=== PATIENT | female | born 1985 | race Caucasian/White ===

== ENCOUNTER 2017-08-09 15:05 | Emergency (ER) | payer MEDICAID, SELFPAY ==
[2017-08-09 15:06] VITALS: BP 112/82; PULSE 90; RESP 86; TEMP 37; O2SAT 100; BMI 21.1
--- NOTE | 2017-08-09 15:33 | ED.RN ---
Pt has refused lab work, iv and iv toradol. Dr. Queen aware.
--- NOTE | 2017-08-09 15:38 | ED.RN ---
Pt has also refused transvaginal US. Only wants PO pain med, like Dr. Jones gave me last time.:
[2017-08-09 15:39] VITALS: PULSE 83; RESP 16
--- NOTE | 2017-08-09 15:46 | ED.VISSUMM ---
- ER Visit Summary Date of Service: 08/09/17 Chief Complaint: Pelvic pain History of Present Illness: The patient is a 32 F who presents with pelvic pain. She has had chronic pelvic pain for 3 years. She complains of severe pelvic pain with her menstrual periods. She complains of 5 days of pelvic cramping. She denies fevers or vomiting. She does report nausea. She denies dysuria frequency urgency or hematuria. She actually has an appointment with AIRWAY CONTROLLER in 4 days. She states she just could not take it anymore so presented here. Physical Examination: Afebrile vitals are unremarkable Moist mucous membranes Heart regular rate and rhythm Lungs are clear Abdomen soft nontender nondistended Alert Resting comfortably in no distress Test Results: Refused Emergency Department Course and Treatment: Given that the patient was complaining of severe pain. I did order laboratory studies and a pelvic ultrasound. The patient refused any diagnostic testing IV or IV medications. She states that last time she was here she was just given a prescription for Percocet and that is all she wanted was a prescription for pain medication. I discussed risks and benefits and that I could not rule out serious pathology without diagnostic testing including serious process such as ovarian torsion. The patient vocalized understanding. She signed out AGAINST MEDICAL ADVICE. She was given prescriptions for Dolobid and Zofran and advised to keep her scheduled follow-up with AIRWAY CONTROLLER. Treatment Plan: [] Disposition: Discharged AGAINST MEDICAL ADVICE Impression: Pelvic pain This note was generated with [employer] dictation software. It may contain incorrect words, spelling, and punctuation that were not noted in review of the chart prior to signing ED Disposition - Plan for ED Patient: Chief Complaint: Vag Bleeding Referrals: Jada Lilly MD [Primary Care Provider] -
--- NOTE | 2017-08-09 15:49 | ED.DCSUM_ITS ---
- ER Visit Summary Date of Service: 08/09/17 Chief Complaint: Pelvic pain History of Present Illness: The patient is a 32 F who presents with pelvic pain. She has had chronic pelvic pain for 3 years. She complains of severe pelvic pain with her menstrual periods. She complains of 5 days of pelvic cramping. She denies fevers or vomiting. She does report nausea. She denies dysuria frequency urgency or hematuria. She actually has an appointment with OB /INSTRUMENT MECHANICS SUPERVISOR in 4 days. She states she just could not take it anymore so presented here. Physical Examination: Afebrile vitals are unremarkable Moist mucous membranes Heart regular rate and rhythm Lungs are clear Abdomen soft nontender nondistended Alert Resting comfortably in no distress Test Results: Refused Emergency Department Course and Treatment: Given that the patient was complaining of severe pain. I did order laboratory studies and a pelvic ultrasound. The patient refused any diagnostic testing IV or IV medications. She states that last time she was here she was just given a prescription for Percocet and that is all she wanted was a prescription for pain medication. I discussed risks and benefits and that I could not rule out serious pathology without diagnostic testing including serious process such as ovarian torsion. The patient vocalized understanding. She signed out AGAINST MEDICAL ADVICE. She was given prescriptions for Dolobid and Zofran and advised to keep her scheduled follow-up with DIESEL ENGINE II PIPE FITTER. Treatment Plan: [] Disposition: Discharged AGAINST MEDICAL ADVICE Impression: Pelvic pain This note was generated with [employer] dictation software. It may contain incorrect words, spelling, and punctuation that were not noted in review of the chart prior to signing ED Disposition - Plan for ED Patient: Chief Complaint: Vag Bleeding Referrals: Jada Lilly MD [Primary Care Provider] -
--- NOTE | 2017-08-09 15:50 | ED.DEP ---
ED Disposition - Plan for ED Patient: Chief Complaint: Vag Bleeding Instructions: ED Pelvic Pain [facility] Prescriptions: Ondansetron [Zofran Odt] 4 mg PO Q8H PRN PRN #10 tab PRN Reason: Nausea Diflunisal [Dolobid] 500 mg PO BID PRN #20 tab PRN Reason: Pain Referrals: Jada Lilly MD [Primary Care Provider] - Rachelle Hu MD [STAFF PHYSICIAN] -
[2017-08-09 16:30] VITALS: BP 110/76; PULSE 83; RESP 14; O2SAT 98
== END 2017-08-09 16:10 | disposition home or self-care (01) ==
LOC: ED 17:42
PROVIDERS: Emergency Provider Emergency Medicine; Family Provider Family Medicine; PCP Family Medicine
DX: R10.2 Pelvic and perineal pain (principal); R19.7 Diarrhea, unspecified; R10.9 Unspecified abdominal pain; R11.0 Nausea; Z72.0 Tobacco use
CPT/HCPCS: 96374; 99282

== ENCOUNTER 2018-12-24 10:28 | Emergency (ER) | payer MEDICAID, SELFPAY ==
[2018-12-24 10:29] VITALS: BP 137/116; PULSE 115; RESP 19; TEMP 36.8; O2SAT 100; BMI 19.5
--- NOTE | 2018-12-24 11:33 | CM.ED ---
Social Work Referral: Anxiety Informant: Dr. Kemp Discussing case with Dr. Kemp prior to speaking with patient. Dr. Kemp reporting that patient is stating that patient significant other had an affair recently and that it appears there are many stressors at home for patient. Dr. Kemp reporting that patient does have a 5 year old son at home of which patient significant other is the father. Dr. Kemp is stating that patient is wanting medication for anxiety but patient is unable to state any long-term plan to manage the anxiety at this time. Dr. Kemp stating that patient is stating to not want to speak with anyone about counseling or other services at this time. Patient is noted to have Dr. Lilly as primary care physician but that patient did not want to go see Dr. Lilly due to Dr. Lilly knowing patient mother. Spoke with patient in room. Patient sitting on bed and tearful when this medical social worker entered the room. Patient reporting to be crying out of embarrassment about being here. Patient stating to know a lot of people in the community and to be afraid that people with talk. This medical social worker educating patient on confidentiality and HIPAA. Patient reporting to work for the [employer] and that people still talk. Patient asking if patient needs to speak with this medical social worker. This medical social worker educating patient that patient does not need to speak with this medical social worker but that this medical social worker may be able to offer support and assist patient in establishing a plan. Patient open to this medical social worker proceeding with further questions. This medical social worker inquiring as to what brought patient in to the ED today. Patient becoming tearful and stating to not want to talk about it. This medical social worker communicating to have spoken with Dr. Kemp and that it is being recommended for patient to have a plan in place to manage anxiety within the community. Patient stating to be able to drive over to the [facility] today to attempt to set up an appointment with [facility] as patient is reporting to this medical social worker to not feel comfortable with Dr. Lilly due to the connection with patient family (as noted above). This medical social worker inquiring about possibly getting a counseling appointment set up for patient this week. Patient is not open to individual counseling at this time stating I want to get marriage counseling. Patient stating that patient significant other needs help getting on the right track. Patient again stating to not be interested in this medical social worker setting up an individual counseling session for patient. This medical social worker inquiring if patient would be open to this medical social worker setting up ap PCP appointment for patient with another PCP. Patient is agreeable to this and requesting for this medical social worker to set up a PCP appointment with a female. Telephone call to [facility] inquiring if Dr. Cowart or Dr. Castro are accepting new patients. Will continue to follow. Joshua CARRILLO, REAL
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
--- NOTE | 2018-12-24 12:04 | ED.RN ---
pt states need to leave to go get kid. then pt becomes very upset because will not receive medication here. emery in room. pt very angry. pt will not follow thru with recommendation. pt crying requesting to be medicated. pt states i need to meet my mom at the pool for the day
--- NOTE | 2018-12-24 12:16 | ED.RN ---
pt has requested to talk with ed physician . requesting medication. dr aware. land remains in room. pt leaves
--- NOTE | 2018-12-24 12:22 | CM.ED ---
Social Work RN, Kandis coming to this social workers office and informing this social media executive that patient is wanting to leave the emergency department now. This social media executive and Kandis met with patient in room. Patient is reporting to want to leave if the Doctor is not going to prescribe anything for patient to treat patient anxiety. This social media executive and Kandis communicating that it is a process and that Dr. Kemp would like to have patient set up with some sort of follow up care prior to prescribing any medication for patient. Patient becoming frustrated with the process. This social media executive communicating to have a voicemail out to [facility] and to be waiting the return phone call. Patient is not willing to continue to wait. This social media executive providing patient with a list of PCP's in the area as well as counseling services. Patient also given the contact information for the crisis hotline. This social media executive did inquire if patient is currently having any thoughts of suicide. Patient stating no, I am not stupid. This social media executive communicating that it is this social workers role to check in on patient mental health status. Patient stating well that is nice. Patient then gathering belongings and walking out of the emergency department. Attempted to provide emotional support for patient throughout interactions. Patient did thank this social media executive for time and services. Joshua CARRILLO, REAL
== END 2018-12-24 12:23 | disposition home or self-care (01) ==
PROVIDERS: Emergency Provider Emergency Medicine; Family Provider Family Medicine; PCP Family Medicine
DX: F41.9 Anxiety disorder, unspecified (principal); Z72.0 Tobacco use
CPT/HCPCS: 99282

== ENCOUNTER 2021-05-22 13:08 | Emergency (ER) | payer MEDICAID, SELFPAY ==
[2021-05-22] VITALS (7 sets, daily range): BP systolic 111–148; BP diastolic 77–98; PULSE 72–98; RESP 14–18; TEMP 36.3; O2SAT 97–99; BMI 19.5
[2021-05-22 15:01] LABS: Amphetamine Urine VISTA NEGATIVE (<1000 ng/mL); Barbiturate Urine VISTA NEGATIVE (< 200 ng/mL); Benzodiazepine Urine VISTA NEGATIVE (< 200 ng/mL); Cocaine Urine VISTA NEGATIVE (< 300 ng/mL); Ecstacy Urine VISTA NEGATIVE (< 500 ng/mL); Methadone Urine VISTA NEGATIVE (< 300 ng/mL); PCP Urine VISTA NEGATIVE (< 25 ng/mL); THC Urine VISTA POSITIVE (< 50 ng/mL); Vista UDS pH Range 6
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
[2021-05-22] MEDS: LORazepam 1 MG Tablet PO (15:31)
[2021-05-22 15:53] LABS: Absolute Lymphocyte Count 1.68 X10^3/uL (0.83-4.51); Absolute Neutrophil Count 11.9 X10^3/uL (2.0-7.7); Basophil# 0.03 X10^3/uL; Basophil% 0.2 % (0-1); Eosinophil# 0.01 X10^3/uL; Eosinophils% 0.1 % (0-5); Hematocrit 46.3 % (37-47); Lymphocyte # 1.68 X10^3/ul (0.83-4.51); Lymphocyte % 11.9 % (19-41); Mean Corp Hgb Conc 32.4 g/dL (32-36); Mean Corpuscular Hgb 30.4 pg (27.0-32.0); Mean Corpuscular Volume 93.7 fL (81-99); Monocyte# 0.47 X10^3/uL; Monocyte% 3.3 % (0-10); NRBC Flagged by Analyzer 0 % (0-5); Neutrophil # 11.85 X10^3/uL (2.7-7.7); Neutrophil % 84.1 % (47-70); Platelet Count 216 K/mm3 (150-450); RBC Distribution Width CV 13.2 % (11.6-14.6); Red Blood Count 4.94 M/mm3 (4.2-5.4); White Blood Count 14.1 K/mm3 (4.4-11.0)
[2021-05-22 16:00] LABS: Internal QC Validated? YES +Cl - CLEAR BKGD; Pregnancy, Serum, hCG Quali. NEGATIVE Negative
[2021-05-22 16:04] LABS: Anion Gap 6 (5-15); BUN 4 mg/dL (7-18); BUN/Creat Ratio 5.1 RATIO (10-20); Calcium,Total 9.7 mg/dL (8.5-10.1); Chloride 110 mmol/L (98-107); Creatinine, Serum 0.78 mg/dL (0.55-1.02); EST Glomerular Filtration Rate 88 mL/min (>60); Est Glom Filt Rate - Afr Amer 106 mL/min (>60); Estimated Creatinine Clearance 88.39 ml/min; Glucose 124 mg/dL (74-106); Potassium 3.8 mmol/L (3.5-5.1); Sodium Level 142 mmol/L (136-145)
[2021-05-22 16:38] LABS: Alcohol, Blood (Medical)-Serum < 3.0 mg/dL
[2021-05-22 16:40] LABS: Bacteria 0 SEEN /hpf (None Seen); Mucous, Urine 0 SEEN /hpf (<or=2+); Red Blood Cells-Urine 0 SEEN /hpf (0-5)
[2021-05-22 16:44] LABS: Glucose, Dipstick Normal (Normal); Ketone-Dipstick Negative (Negative); Leukocyte Esterase-Dipstick Negative /ul (Negative); Nitrite-Dipstick Negative (Negative); Occult Blood-Urine Negative /ul (Negative); Protein-Dipstick Negative (Negative); Urine Bilirubin Dipstick Negative (Negative); Urine Clarity Clear (Clear); Urine Urobilinogen Normal (Normal); Urine pH 6.5 (5.0 - 8.0)
[2021-05-22 16:58] LABS: Color, Urine SEE COMMENT BELOW (Yellow)
[2021-05-22 17:01] LABS: Squamous Epithelial Cells - UA 0-5 SEEN /hpf (5-10)
[2021-05-22 17:03] LABS: White Blood Cells 0-5 SEEN /hpf (0-5)
[2021-05-22] MEDS: Ziprasidone IM 20 MG/ML VIAL 10 MG IM (17:04)
--- NOTE | 2021-05-22 22:35 | EKG12_ITS ---
Test Reason : MHC Blood Pressure : / mmHG Vent. Rate : 074 BPM Atrial Rate : 074 BPM P-R Int : 120 ms QRS Dur : 082 ms QT Int : 406 ms P-R-T Axes : 080 069 058 degrees QTc Int : 450 ms Normal sinus rhythm with sinus arrhythmia Nonspecific T wave abnormality Abnormal ECG Confirmed by DEYA NGUYEN, JOSE ([id number]), editor department NIKI RAMOS ([id number]) on 05/24/2021 10:05:42 AM Referred By: RENEA Confirmed By:JOSE FALK MD
== END 2021-05-22 23:44 ==
PROVIDERS: Emergency Provider Emergency Medicine; PCP Family Medicine
DX: F30.9 Manic episode, unspecified (principal)
CPT/HCPCS: 80048; 80307; 81001; 82077; 84703; 85025; 87426; 93005; 96372; 99285; A4216; J3486

== ENCOUNTER 2025-02-25 11:04 | Emergency (ER) | payer MEDICAID, SELFPAY ==
[2025-02-25 11:04] VITALS: BP 106/83; PULSE 117; RESP 18; TEMP 36.9; O2SAT 97
[2025-02-25 12:04] VITALS: BP 101/88; PULSE 98; RESP 16; O2SAT 98
--- NOTE | 2025-02-25 12:11 | EX.ED.DYSGE1 ---
HPI History of Present Illness Chief Complaint: Mental Health Informant: patient and friend Onset/Context/Timing Onset: - (Years) Context: Gradual Onset Timing: Intermittent Current Severity: Mild Maximum Severity: Mild Narrative Narrative: 39-year-old female denies any significant past medical history. Told them in triage I think there is something behind my left ear. She denies any psychiatric illness. She was seen earlier today by nurse practitioner. Prior similar symptoms: Yes Recent Illness/Hospitalization: No PFSH PFSH Medical History delivery delivered Anxiety Home Medications ?Medication ?Instructions ?Recorded ?Last Taken ?Type NK 12/24/18 Unknown History Allergy/AdvReac Type Severity Reaction Status Date / Time azithromycin (From Zithromax AdvReac Mild Diarrhea Verified 02/25/25 11:06 Z-Guille) Social History Smoking Status: Never smoker ROS ROS ED ROS Narrative Denies recent illness. Constitutional Constitutional ED: Denies chills or fever(s) Eyes Eyes: Denies blurry vision ENT ENT ED: Denies ear pain Cardiovascular Cardiovascular: Denies chest pain Respiratory/Chest Respiratory/Chest: Denies cough or dyspnea Gastrointestinal Gastrointestinal: Denies abdominal pain Genitourinary Genitourinary ED: Denies dysuria or hematuria Musculoskeletal Musculoskeletal: Denies arthralgias Integumentary Denies abscess Neurologic Neurologic: Denies headache(s) Psychiatric Psychiatric: Denies anxiety, suicidal ideation or suicidal thoughts Endocrine Endocrinology: Denies cold intolerance Hematologic/Lymphatic Hematologic/Lymphatic: Reports none Allergic/Immunologic Allergic/Immunologic ED: Denies mouth swelling, tongue swelling or urticaria EXAM Physical Exam Narrative Exam Narrative: Well-appearing 39-year-old female sitting up in her room with her friend. Vital signs are stable afebrile. She is in no distress. HEENT exam pupils round react light. Moist mucous membranes. TMs are normal bilaterally. Behind her left ear is a normal exam. There is no mastoid bone. There is no abscess or cyst. There is no signs of any incision or trauma. There is no foreign body noted. There is no redness. It is nontender. Neck nontender no lymphadenopathy. Lungs clear to auscultation bilaterally. Heart regular rhythm no murmur. Chest wall and ribs are nontender. Abdomen soft nontender. Patient is moving all 4 extremities. Normal correctional facility nurse strength. Nontender no edema. Neurologically she is awake alert. Answering questions following commands. She is paranoid. Const Vital Signs: 02/25/25 11:04 02/25/25 12:04 Temperature 98.4 F Temperature Source Temporal Pulse Rate 117 H 98 Respiratory Rate 18 16 Blood Pressure 106/83 H 101/88 H Blood Pressure Mean 90 92 Pulse Ox 97 98 Oxygen Delivery Method Room Air Positive well nourished and well developed; Negative for obese, cachectic, contractures or unkempt General Appearance ED: well developed; Negative for unkempt, cachectic, contractures, cyanotic, diaphoretic or pallor Nutritional Appearance: Negative for cachectic or obese HEENT Reports moist mucous membranes Eyes PERRL and EOMs intact bilaterally General Eye ED: Negative for pale conjunctiva or scleral icterus Neck no lymphadenopathy, supple and no JVD General: Negative for tenderness Chest Wall inspection of chest normal and palpation of chest normal Resp normal respiratory effort and clear to auscultation bilaterally Cardio regular rate, regular rhythm, S1 normal heart sound, S2 normal heart sound and no murmurs GI normal to inspection, nondistended, normoactive bowel sounds, non-tender, non-distended and no masses Auscultation: normoactive bowel sounds Palpation: soft; Negative for tender, guarding, splenomegaly, mass or rebound tenderness present Back/Spine no CVA tenderness General Back: Negative for CVA tenderness Cervical Spine: Negative for cervical spine tenderness Thoracic Spine / Upper Back: Negative for thoracic spinal tenderness or paraspinal muscle tenderness Lumbar Spine / Lower Back: Negative for lumbar spinal tenderness Extremity normal to inspection General Extremety ED: Negative for edema or tenderness General Extremity: Negative for edema Neuro oriented x3 and CN's II-XII intact bilaterally Sensorium / Orientation: alert Motor Exam: strength 5/5 throughout Psych mental status grossly normal Appearance: Negative for unkempt Attitude: No agitated Mood & Affect: Negative for depressed, anxious or tearful Skin no rashes or lesions noted, no wounds and skin turgor normal Skin Narrative: Behind her left ear there is no signs of a trauma or infection. There is no abscess or cyst. Normal in appearance. General Skin Exam: elasticity normal; Negative for jaundice or pallor Lesions: No lesion noted Rashes: No rashes noted Trauma: Negative for abrasion Wounds: Negative for wounds noted MDM MDM MDM Narrative Medical decision making narrative: 39-year-old female thinks 2 to 3 years ago someone may have placed something behind her left ear that is affecting her health. This appears to be more of paranoid delusion. She is not homicidal or suicidal. As I was doing the exam a staff member from the counseling center came and the patient became upset and did not want to stay any longer and basically left. Prior to leaving her and her friend were basically demanding a CAT scan of her head and neck which I explained and they did not need and that would not be ordered at this time. Patient left prior to discharge. History & Record Review Discussion w/independent historian: Patient and Friend Discharge Plan Triage Chief Complaint: Mental Health ED Provider: Gato Stewart Dx/Rx/DC Orders Clinical Impression: Acute paranoia Prescriptions: No Action NK Primary Care Provider: Jada Lilly Referrals: Jada Lilly MD [Primary Care Provider] - Print Language: Sammarinese Disposition Disposition: Elopement
--- NOTE | 2025-02-25 12:20 | ED.RN ---
pt walks by back nurses station talking to friend and states *that woman was crazy, it was scary!!* this rn goes to check the pts room and confirms that it was her attempting to leave the ED. SADIE velazquez notified and bench worker Alberto notified. pt noted to be walking to the ground floor. PD notified and dr soto. dr soto talking to Alberto and alberto believes the pt would beneefit from placement. pt has since left the building
== END 2025-02-25 12:47 | disposition left against medical advice (07) ==
LOC: ED 12:46
PROVIDERS: Emergency Provider Emergency Medicine; PCP Family Medicine; Visit Provider Emergency Medicine
DX: F22 Delusional disorders (principal)
CPT/HCPCS: 99283